=== PATIENT | male | born 1940 | race Asian ===

== ENCOUNTER 2022-06-22 17:55 | Emergency (ER) | payer OTHER ==
[~2022-06-22] VITALS: Ht 172.7 cm; Wt 57.6 kg
--- NOTE | 2022-06-22 18:13 | NUR ---
[id number] FROM HOME C/O SEVERE NECK PAIN 10/ AFTER TAKING A NAP THIS AFTERNOON. PT ALSO C/O HEADACHE. PT ADMITS TO HAVING THE SAME EPISODE 3 MONTHS AGO WITH HX OF DEGENERATIVE DISC DISEASE. DENIES ANY TRAUMA. PT PLACED IN MONITOR AWAITING MD ORDERS.
[2022-06-22] MEDS ORDERED: LIDOCAINE 5% (PATCH) 1 EA PATCH TP SCH (19:00)
[2022-06-22] MEDS ORDERED: oxyCODONE/APAP (5/325 MG) 1 UDTAB TABLET PO ONE (19:00)
[2022-06-22] MEDS ORDERED: LIDOCAINE 5% (PATCH) 1 EA PATCH TP ONE (19:12)
[2022-06-22] MEDS ORDERED: oxyCODONE/APAP (5/325 MG) 1 UDTAB TABLET ONE (19:12)
--- NOTE | 2022-06-22 19:26 | NUR ---
REPORT GIVEN TO AUGUSTIN FOR ADEBAYO.
--- NOTE | 2022-06-22 19:49 | NUR ---
DAUGHTER, VISHNU: [phone]
--- NOTE | 2022-06-22 20:30 | NUR ---
VISHNU( DAUGHTER) WILL GROCERY CLERK MARKING PT FOR DC ETA 10 MINUTES
[2022-06-22 20:59] VITALS: BP 151/81
--- NOTE | 2022-06-22 20:59 | NUR ---
Patient discharged to home in stable condition. Written and verbal after care instructions given. Patient verbalizes understanding of instruction.
== END 2022-06-22 21:00 | disposition home or self-care (01) ==
LOC: ER 17:57
DX: M54.2 Cervicalgia (principal); I10 Essential (primary) hypertension; E11.9 Type 2 diabetes mellitus without complications; M19.90 Unspecified osteoarthritis, unspecified site